=== PATIENT | male | born 1985 | race Caucasian/White ===

== ENCOUNTER 2020-12-18 04:32 | Emergency (ER) | payer MEDICAID ==
--- NOTE | 2020-12-18 05:04 | ED Physician Documentation ---
History of Present Illness - Stated complaint Stated Complaint: DEHYDRATION, SOA - Chief complaint Chief Complaint: General - History obtained from History obtained from: Patient - History of Present Illness Timing: How many hours ago (7) Pain level now: 2 - Additonal information Additional information: patient offers vague c/o dehydration and burning sensation in epigastrium which he says is c/w previous episodes of GERD. when I ask why he feels he is dehydrated, he says he has not been drinking enough fluids and describes RLE cramping pain over past several days. patient is brought to ED by police after calling 911 [place]. patient strongly denies SI and he says [place] Review of Systems Constitutional: reports: Reviewed and negative Cardiac: reports: Reviewed and negative Respiratory: reports: Reviewed and negative GI: reports: Reviewed and negative PD PAST MEDICAL HISTORY - Past Medical History Past Medical History: No - Present Medications Home Medications: Ambulatory Orders Medication Instructions Recorded Confirmed Albuterol Sulf [Ventolin Hfa 1 - 2 puffs INH Q4HR PRN 12/18/20 12/18/20 Inhaler] Omeprazole Magnesium 20 mg PO DAILY #14 12/18/20 Ondansetron Odt [Zofran Odt] 4 mg TL Q6H PRN #10 tablet 12/18/20 - Allergies Allergies/Adverse Reactions: Allergies Allergy/AdvReac Type Severity Reaction Status Date / Time No Known Drug Allergies Allergy Verified 12/18/20 04:44 PD ED PE NORMAL - Vitals Vital signs reviewed: Yes - General General: Alert and oriented X 3, No acute distress, Well developed/nourished - HEENT HEENT: Moist mucous membranes - Cardiac Cardiac: RRR, No murmur - Abdomen Abdomen: Normal bowel sounds, Soft, Non tender, Non distended - Neuro Neuro: Alert and oriented X 3 Results - Vitals Vitals: Oxygen O2 Source Room air PD MEDICAL DECISION MAKING - ED course Complexity details: reviewed results, re-evaluated patient, considered differential, d/w patient ED course: patient is in NAD, has no specific chief complaint nor apparent emergent medical condition. During course of discussion regarding reason for ED visit, he eventually settles on sensation of heartburn. unremarkable physical exam and he is discharged after PO PPI, maalox, and lidocaine Departure - Departure Disposition: 01 Home, Self Care Clinical Impression: GERD (gastroesophageal reflux disease) Qualifiers: Esophagitis presence: without esophagitis Qualified Code(s): K21.9 - Gastro- esophageal reflux disease without esophagitis Condition: Good Instructions: ED GERD Prescriptions: Omeprazole Magnesium 20 mg PO DAILY #14 Ondansetron Odt [Zofran Odt] 4 mg TL Q6H PRN #10 tablet PRN Reason: Nausea / Vomiting Comments: Follow up with your primary care provider; call to arrange for next available appointment Discharge Date/Time: 12/18/20 07:17
[2020-12-18] MEDS ORDERED: ONDANSETRON ODT 4 MG TABLET TL STA (05:15)
[2020-12-18] MEDS ORDERED: PANTOPRAZOLE 40 MG TABLET PO STA (05:22)
[2020-12-18] MEDS ORDERED: MAG HYDROX/AL HYDROX/SIMETH 30 ML UDC PO STA (05:22)
[2020-12-18] MEDS ORDERED: LIDOCAINE VISCOUS 2% 15 ML UDC MM STA (05:22)
[2020-12-18 07:17] VITALS: BP 117/81
== END 2020-12-18 07:17 | disposition home or self-care (01) ==
LOC: ED 04:32
DX: K21.9 Gastro-esophageal reflux disease without esophagitis (principal)
CPT/HCPCS: 99282; 99284; A9270; Q0162